=== PATIENT | female | born 1980 | race Caucasian/White ===

== ENCOUNTER 2021-01-22 20:15 | Emergency (ER) | payer MEDICAID ==
[~2021-01-22] VITALS: Ht 175.3 cm; Wt 99.8 kg
[~2021-01-22 20:15] MED LIST: ADVAIR 250-501 EACH IH; ADVAIR 500-501 EACH PO; ALBUTEROL INHAL17 GM IH; ALBUTEROL2.5 MG/0.1 IH; AMBIEN 10 MG TA10 MG PO; ASPIRIN EC81 M1; ATIVAN0.5 MG PO; AZITHROMYCIN 2250 MG PO; AZITHROMYCIN 6600 M1; BACITRACIN15 GM TP; BENTYL10 MG PO; BYSTOLIC 5 MG5 M1 PO; BYSTOLIC2.5 MG PO; CALAN; CARAFATE1 GM/10 ML PO; CHERATUSSIN DA480 ML PO; CIPROFLOXACIN500 M1 PO; CLARITIN10 MG PO; CLEOCIN HCL300 MG PO; CLOBETASOL PROP60 G1 TP; DAPTOMYCIN IV; DIFLUCAN150 MG PO; FLEXERIL PO; FLONASE16 GM; FLOXIN OTI0.3 %/5 M1; HYDROCODON-ACE1 EAC7 PO; IBUPROFEN 600600 M1 PO; IBUPROFEN 800800 M1 PO; IBUPROFEN 800800 MG PO; LEVAQUIN 500 M500 MG PO; LISINOPRIL10 MG PO; LOPRESSOR25 PO; LORTAB 5 MG/5001 TA1 PO; MEDROLDOSEPACK; MEDROLDOSEPACK PO; METFORMIN ER 5500 MG PO; METFORMIN HCL500 MG; MONONESSA1 EACH; MULTIVITAMINS1 EAC7 PO; MUPIROCIN22 GM; NAPROSYN500 MG PO; NASOCORT; NEXIUM; NORCO 10-325 T1 EACH; NORCO 5-325 TA1 EACH PO; OMEPRAZOLE; ORADENT 0.1% DEN5 GM TOP; OXYCODONE-ACET1 EACH PO; PERCOCET 5-3251 EACH; PERCOCET 5-3251 EACH PO; PERCODAN TABLE1 EACH PO; PREDNISONE 10 M10 M1 PO; PREDNISONE 10 M10 MG PO; PREDNISONE 20 M20 M1 PO; PREDNISONE 20 M20 MG PO; PREDNISONE50 MG PO; PRILOSEC 20 MG20 MG; PRILOSEC40 MG; PROMETHAZINE12.5 M4 RE; PYRIDIUM200 MG PO; REQUIP 1 MG TABL1 MG PO; RIFAMPIN 300 M300 M1 PO; SINGULAIR; SINGULAIR 10 MG10 M1 PO; SOMATULINE SQ; SOMAVERT SQ; SPIRIVA; SPIRIVA INH; SPRINTEC1 EACH PO; SYNTHROID150 MCG PO; TESSALON200 MG PO; TRIAMCINOLONE TOP; TRICOR145 MG; TRINATE TABLET1 TAB PO; ULTRAM 50MG TAB50 MG PO; VENTOLIN HFA 1818 GM INH; VERAPAMIL E.R240 M1 PO; VICODIN 5-5001 EACH PO; VISTARIL 25 MG25 M1 PO; VITAMIN D PO; XOPENEX1.25 MG/3; ZOFRAN4 MG PO; ZPAK PO; ZYRTEC 10 MG TA10 MG PO; [UNRECOGNIZED DRUG - OTHER] PO
[2021-01-22] MEDS ORDERED: RAYOS5 MG PO (20:36)
[2021-01-22] MEDS ORDERED: TRICOR145 MG PO (20:37)
[2021-01-22] MEDS ORDERED: BYSTOLIC10 MG PO (20:38)
[2021-01-22] MEDS ORDERED: SOMAVERT SUBQ (20:38)
[2021-01-22 20:51] LABS: URINE BILIRUBIN NEGATIVE (Negative); URINE BLOOD NEGATIVE (Negative); URINE CLARITY CLEAR; URINE COLOR YELLOW; URINE GLUCOSE-RANDOM NEGATIVE (Negative); URINE KETONES NEGATIVE (Negative); URINE LEUKOCYTES NEGATIVE (Negative); URINE NITRITE NEGATIVE (Negative); URINE PROTEIN NEGATIVE (Negative); URINE SPECIFIC GRAVITY 1.025 (1.005-1.030); URINE UROBILINOGEN 0.2 E.U./dl (0.2-1.0)
[2021-01-22 21:07] LABS: ABSOLUTE BASOPHILS 0.1 thou/uL (0.0-0.2); ABSOLUTE MONOCYTES 0.4 thou/uL (0.0-1.2); BASOPHILS 1.1 %; EOSINOPHILS 0.3 %; HEMATOCRIT 36.5 % (37.0-47.0); HEMOGLOBIN 12.2 gm/dL (12.0-15.0); MCH 27.7 pg (26.0-34.0); MCHC 33.5 g/dL (28.0-37.0); MCV 82.6 fL (80.0-100.0); MONOCYTES 4.1 %; MPV 6.1 fl. (7.2-11.1); NUCLEATED RBCS 0 /100WBC; PLATELET COUNT* 357 thou/uL (150-400); POLYS 73.5 %; RBC 4.42 mil/uL (4.20-5.00); RDW-CV 14.3 % (10.5-14.5); WBC 9.6 thou/uL (4.0-11.0)
[2021-01-22 21:14] LABS: CALCIUM 9.3 mg/dL (8.5-10.1)
[2021-01-22 21:18] LABS: ALBUMIN 4.1 g/dL (3.4-5.0); TOTAL BILIRUBIN 0.4 mg/dL (<0.1-1.0); TOTAL PROTEIN 7.5 g/dL (6.4-8.2)
[2021-01-23 00:03] VITALS: BP 117/82
== END 2021-01-23 00:03 | disposition home or self-care (01) ==
LOC: M.ERS 20:15
PROVIDERS: Physician Assistant
DX: R10.84 Generalized abdominal pain (principal); J45.909 Unspecified asthma, uncomplicated; K21.9 Gastro-esophageal reflux disease without esophagitis; I10 Essential (primary) hypertension; E03.9 Hypothyroidism, unspecified; M19.90 Unspecified osteoarthritis, unspecified site; F17.210 Nicotine dependence, cigarettes, uncomplicated; Z90.49 Acquired absence of other specified parts of digestive tract; Z79.899 Other long term (current) drug therapy; Z88.0 Allergy status to penicillin; Z88.2 Allergy status to sulfonamides; Z91.040 Latex allergy status; Z88.1 Allergy status to other antibiotic agents